=== PATIENT | female | born 1955 | race African-American/Black ===

== ENCOUNTER 2024-05-06 19:31 | Emergency (ER) | payer OTHER ==
[~2024-05-06] VITALS: Ht 165.1 cm; Wt 68.0 kg
[2024-05-06 19:45] VITALS: BP 161/109; PULSE 69; RESP 17; TEMP 98.4; O2SAT 98
[2024-05-06] MEDS ORDERED: LIDO700A15 TP (22:28)
[2024-05-06] MEDS ORDERED: NAPR-1176 MT (22:28)
[2024-05-06] MEDS: ACETAMINOPHEN 500MG TABLET PO ONE (22:36)
== END 2024-05-06 22:42 | disposition home or self-care (01) ==
LOC: ER 19:31
DX: M25.522 Pain in left elbow (principal); M25.562 Pain in left knee; R07.89 Other chest pain; V03.99XA Pedestrian with other conveyance injured in collision with car, pick-up truck or van, unspecified whether traffic or nontraffic accident, initial encounter; Y93.89 Activity, other specified; Y92.89 Other specified places as the place of occurrence of the external cause; Y99.8 Other external cause status
CPT/HCPCS: 71045; 73080; 73130; 73562; 99284